=== PATIENT | male | born 1960 | race Hispanic/Latino ===

== ENCOUNTER 2018-08-02 11:25 | Observation (INO) | payer MEDICARE ==
[2018-08-02] MEDS ORDERED: Acetaminophen 500 MG TAB PO PRN (12:36)
[2018-08-02] MEDS ORDERED: Ondansetron HCl/PF 4 MG/2 ML Vial IVP PRN (12:36)
[2018-08-02 13:21] LABS: #Basophils 0.1 thou/uL (0.0-0.2); #Eosinphils 0.2 thou/uL (0.0-0.7); #Lymphocytes 3.4 thou/uL (1.20-3.40); #Monocytes 0.7 thou/uL (0.11-0.59); #Neutrophils 7.6 thou/uL (1.40-6.50); %Basophils 0.6 % (0.0-1.0); %Eosinophils 1.9 % (0.0-10.0); %Lymphocytes 28.5 % (21.0-51.0); %Monocytes 6.2 % (0.0-10.0); %Neutrophils 62.9 % (42.0-75.0); Hemoglobin 15.3 g/dL (14.0-18.0); Mean Corpuscular HGB CONC 33.6 g/dL (32.0-36.0); Mean Corpuscular Hemoglobin 30.6 pg (27.0-31.0); Mean Corpuscular Volume 90.9 fL (78.0-98.0); Mean Platelet Volume 7.2 fL (7.4-10.4); Platelet Count 294 thou/uL (130-400); RBC Distribution Width 11.5 % (11.5-14.5)
[2018-08-02] MEDS ORDERED: Iopamidol 370 76% 100 ML VIAL ONE (13:21)
[2018-08-02 13:25] VITALS: BMI 37.8
[2018-08-02 13:42] LABS: ALT (SGPT) 99 U/L (8-55); AST (SGOT) 67 U/L (5-34); Albumin 4.1 g/dL (3.5-5.0); Alkaline Phosphatase 71 U/L (40-150); Anion Gap 15 mmol/L (10-20); BUN (Urea Nitrogen) 16 mg/dL (8.4-25.7); Bilirubin, Total 0.6 mg/dL (0.2-1.2); Calc. Creatinine Clearance 182 mL/min (70-130); Calcium 9.6 mg/dL (7.8-10.44); Carbon Dioxide 26 mmol/L (22-29); Cardiac Risk 3.3 (Less than 4.5); Chloride 101 mmol/L (98-107); Cholesterol 129 mg/dl (< 200 Desired); Estimated GFR-MDRD Greater than 90; Glucose 134 mg/dL (70-105); HDL Cholesterol 39 mg/dL (>60 Neg Risk); LDL Cholesterol, Calculated 67 mg/dL; Potassium 3.9 mmol/L (3.5-5.1); Protein, Total 7.1 g/dL (6.0-8.3); Sodium 138 mmol/L (136-145); Triglycerides 117 mg/dL (Less than 150)
[2018-08-02] MEDS ORDERED: Cyclobenzaprine 10 MG TAB PO PRN (14:48)
--- NOTE | 2018-08-02 14:56 | PDOC.FPRHP ---
- History of Present Illness Chief Complaint: facial weakness History of Present Illness: Mr Bingham is a 57 y/o M with DM, HTN, and HLD presenting as a direct admission from clinic after he was found to have a 1 week history of facial weakness. His left side reportedly became numb and weak 1 week ago with and unclear duration of onset. He does not complain of weakness in his extremities, but his PCP reports L sided weakness upon exam. Associated altered sensation on L side of face but nowhere else. He has been ambulating well, but experiencing difficulty chewing, with normal swallowing. Also denies vision changes, ANDREWS, SOB, Chest pain. He does state he was having L arm/shoulder pain last week and was Rx Flexeril in clinic for a muscle spasm with resolution of symptoms. He currently denies any complaints lying in bed. - Allergies/Adverse Reactions Allergies Allergy/AdvReac Type Severity Reaction Status Date / Time No Known Allergies Allergy Verified 05/22/13 10:50 - Home Medications Medication Instructions Recorded Confirmed Type metFORMIN HCl 1,000 mg PO BID 05/22/13 08/02/18 History Aspirin [Aspirin EC] 1 tab PO DAILY 08/02/18 08/02/18 History Cyclobenzaprine [Flexeril] 5 mg PO TID PRN 08/02/18 08/02/18 History Insulin Glargine [Lantus Vial] 40 units SC BID 08/02/18 08/02/18 History Lisinopril/Hydrochlorothiazide 1 tab PO DAILY 08/02/18 08/02/18 History [Prinizide 20-12.5] - History PMHx: PSHx: FHx: Social: - Review of Systems General: denies: fever/chills, weight/appetite/sleep changes Eyes: denies: eye pain, vision changes ENT: denies: nasal congestion, rhinorrhea Respiratory: denies: cough, congestion, shortness of breath Cardiovascular: denies: chest pain, palpitation, edema Gastrointestinal: denies: nausea, vomiting, constipation Genitourinary: denies: incontinence, dysuria Skin: denies: rashes, lesions Musculoskeletal: denies: pain, tenderness, stiffness Neurological: reports: numbness, weakness. denies: syncope, seizure Psychological: denies: anxiety, depression - Vital signs BP: [] HR: [] RR: [] Tmax: [] Pox: []% on [] Wt: [] - Physical Exam Constitutional: NAD, awake, alert and oriented HEENT: normocephalic and atraumatic, PERRLA, EOMI, conjunctiva clear, no scleral icterus, grossly normal hearing, MMM, oropharynx clear Neck: supple, no bruits Chest: no-tender to palpation Heart: RRR, normal S1/S2, no murmurs/rubs/gallops Lungs: CTAB, no respiratory distress, good air movement, no rales/rhonchi Abdomen: soft, non-tender, bowel sounds present Musculoskeletal: normal structure, normal tone, ROM grossly normal -Neurological: Eyes: No nystagmus, PERRL, EOMI Strength: 4/5 in upper and lower extremities. CN II: Visual argueta are full. Pupils are 6 mm and reactive to light. CN III, IV, : no eye deviation. Ptosis of the L eye present. CN V: Facial sensation is decreased in 3 areas tested on L. Corneal responses are intact. CN VII: Eye with decrease squint on L and smile not intact on L side. Unable to inflate cheeks. CN VII: Hearing is normal to rubbing fingers CN XI: Head turning and shoulder shrug are intact, but L side is diminished. CN XII: Tongue deviation to R. Reflexes: 2/4 through upper and LE Skin: no rash/lesions, good turgor, capillary refill <2 seconds Heme/Lymphatic: no unusual bruising or bleeding, no purpura Psychiatric: normal mood and affect, good judgment and insight FMR H&P: Results - Labs Result Diagrams: 08/02/18 13:03 08/02/18 13:03 Lab results: WBC 12.0 thou/uL (4.8-10.8) H 08/02/18 13:03 Hgb 15.3 g/dL (14.0-18.0) 08/02/18 13:03 Hct 45.4 % (42.0-52.0) 08/02/18 13:03 MCV 90.9 fL (78.0-98.0) 08/02/18 13:03 Plt Count 294 thou/uL (130-400) 08/02/18 13:03 Neutrophils % 62.9 % (42.0-75.0) 08/02/18 13:03 Sodium 138 mmol/L (136-145) 08/02/18 13:03 Potassium 3.9 mmol/L (3.5-5.1) 08/02/18 13:03 Chloride 101 mmol/L (98-107) 08/02/18 13:03 Carbon Dioxide 26 mmol/L (22-29) 08/02/18 13:03 BUN 16 mg/dL (8.4-25.7) 08/02/18 13:03 Creatinine 0.80 mg/dL (0.6-1.3) 08/02/18 13:03 Glucose 134 mg/dL (70-105) H 08/02/18 13:03 Calcium 9.6 mg/dL (7.8-10.44) 08/02/18 13:03 Total Bilirubin 0.6 mg/dL (0.2-1.2) 08/02/18 13:03 AST 67 U/L (5-34) H 08/02/18 13:03 ALT 99 U/L (8-55) H 08/02/18 13:03 Alkaline Phosphatase 71 U/L (40-150) 08/02/18 13:03 Serum Total Protein 7.1 g/dL (6.0-8.3) 08/02/18 13:03 Albumin 4.1 g/dL (3.5-5.0) 08/02/18 13:03 FMR H&P: A/P - Problem List (1) Progressive focal motor weakness Current Visit: Yes Status: Acute Code(s): R53.1 - WEAKNESS (2) Neurologic abnormality Current Visit: Yes Status: Acute Code(s): R29.818 - OTHER SYMPTOMS AND SIGNS INVOLVING THE NERVOUS SYSTEM (3) Diabetes mellitus type 2 in obese Current Visit: Yes Status: Acute Code(s): E11.69 - TYPE 2 DIABETES MELLITUS WITH OTHER SPECIFIED COMPLICATION; E66.9 - OBESITY, UNSPECIFIED (4) Hypertension Current Visit: Yes Status: Acute Code(s): I10 - ESSENTIAL (PRIMARY) HYPERTENSION (5) Hyperlipemia Current Visit: Yes Status: Acute Code(s): E78.5 - HYPERLIPIDEMIA, UNSPECIFIED - Plan 1: Suspected CVA: PE and history consistent with a stroke occurring 1 week ago. Will order MRI, ECHO, and CTA head/neck. - ST has evaluated and given recs. On ASA/Statin. - Will consult neurology as well. PT/OT. 2: T2DM: Will resume home Lantus 3: HTN: Restart HTN medication tomorrow morning after MRI 4: HLD: Continue statin DISPO: anticipate discharge in 1-2 days DVTPPX: lovenox Attending Addendum - Attending Addendum Date/Time: 08/02/181821 I personally evaluated the patient and discussed the management with Dr. Burciaga. I agree with and repeated the History, Examination, Assessment and Plan documented above with any addition or exceptions noted below. Pt with symptoms as above. 1 week history. Will order imaging, consult neuro, risk stratify. He has left face hemiparesis above and below the brow. He also has some left sided weakness, and subjective weakness with chewing. DDx includes peck's palsy vs ischemic stroke.
[2018-08-02] MEDS ORDERED: Dextrose 50% Abboject 50 ML SYRINGE SLOW IVP PRN (15:29)
[2018-08-02] MEDS ORDERED: Dextrose 5% in Water 1,000 ML IV PRN (15:29)
[2018-08-02 16:10] VITALS: TEMP 97.6
--- NOTE | 2018-08-02 16:55 | MRI ---
MRI OF BRAIN WITHOUT CONTRAST: 08/02/18 HISTORY: CVA. Stroke. COMPARISON: None. TECHNIQUE: Brain MRI is performed without intravenous gadolinium administration. Multisequential, multiplanar im aging is performed. FINDINGS: The calvarium has a normal T1 marrow signal intensity. Midline brain parenchymal structures are unrem arkable. No parenchymal mass, mass effect or midline shift. Brain volume is age appropriate. Cortical crowe-white matter differentiation is preserved. Ventricles and sulci are patent and symmetric. Central arterial flow voids are maintained. Absent res tricted diffusion. No hemorrhage on the axial gradient echo sequence. Partial opacification of bilateral mastoid air cells, right greater than left. Minimal mucosal thicke davidson of the ethmoid air cells. IMPRESSION: Absent restricted diffusion. No acute infarct. POS: [facility]
[2018-08-02] MEDS ORDERED: metFORMIN 500 MG TAB PO SCH (17:00)
--- NOTE | 2018-08-02 17:29 | CT ---
CT ANGIOGRAM OF HEAD CT ANGIOGRAM OF NECK: Date: 08/02/18 HISTORY: Evaluate for stroke. Facial droop. COMPARISON: None. TECHNIQUE: Noncontrast head CT is performed in the axial plane. CT angiogram of the head and neck are performed in the axial plane. Three-dimensional reformatted images are submitted for interpretation. FINDINGS: NONCONTRAST HEAD CT: No parenchymal hemorrhage. No extra-axial hematoma. No midline shift. Basilar cisterns are patent. Br ain volume, age-appropriate. Cortical crowe-white matter differentiation is preserved. Ventricles and sulci are patent and symmetric. POSTCONTRAST HEAD CT: No pathologic enhancement of the brain parenchyma. Visualized orbits are unremarkable. Adequate aeration of the sinuses and mastoid air cells. Aerodigestive tract is patent. No mucosal abnormality. Epiglottis is normal caliber. Preepiglottic fa t is preserved. No masses in the oral cavity. Evaluation is limited by dental amalgam artifact. Midli ne fatty [place] of the tongue is preserved. Symmetric attenuation of the sternocleidomastoid muscles, submandibular glands, and parotid glands. Unremarkable thyroid gland. No evidence of lymphadenopathy by size criteria. Varying degrees of central canal stenosis and foraminal narrowing on the basis of degenerative change . Upper mediastinum and lung apices do not have any acute abnormality. CT ANGIOGRAM: There is appropriate enhancement and luminal diameter of the aortic arch. Right Carotid: The origin of the right carotid artery, carotid bifurcation, and internal carotid art carlos have appropriate enhancement and luminal diameter. Left Carotid: The origin of the left carotid artery, carotid bifurcation, and internal carotid arter y have appropriate enhancement and luminal diameter. Bilateral subclavian arteries are symmetric and patent. The left vertebral artery is dominant through out its course in the neck. The right vertebral artery may have a short segment of moderate stenosis at approximately the C4-C5 level. CT ANGIOGRAM OF HEAD: There is atherosclerosis involving both cavernous and paraclinoid segments. There is no evidence of s ignificant stenosis. Anterior Circulation: The diminutive right A1 segment is presumed to be a congenital variant. Left A 1 segment and proximal A2 segments are unremarkable. Proximal M1 segments are symmetric. Proximal MCA branches are unremarkable. Posterior Circulation: Right vertebral artery has a PICA termination. The left vertebral artery supp lies a normal appearing basilar artery. Appropriate enhancement and luminal diameter. The left and ri ght P1 segments have appropriate enhancement and luminal diameter. IMPRESSION: 1. Unremarkable CT angiogram of the [place]. 2. No evidence of significant stenosis in either cervical carotid artery based upon NASCET criteria. There may be short segment stenosis involving the right vertebral artery at approximately the C4-C5 level. Note, the right vertebral artery has a PICA termination. Left vertebral artery is a dominant v ertebral artery. POS: [facility]
[2018-08-02 18:06] VITALS: BP 116/71
[2018-08-02] MEDS ORDERED: Atorvastatin Calcium 40 MG TAB PO SCH (21:00)
[2018-08-02] MEDS ORDERED: Enoxaparin Sodium 40 MG/0.4 ML SYRINGE SC SCH (21:00)
[2018-08-02] MEDS ORDERED: Insulin Glargine 40 UNITS in Pre-Filled Syringe 1 EACH SC SCH (21:00)
--- NOTE | 2018-08-02 22:41 | CON ---
DATE OF CONSULTATION: 08/02/2018 NEUROLOGY CONSULTATION CONSULTING PHYSICIAN: [facility]. IMPRESSION: 1. Arrieta's palsy. 2. Diabetes. 3. Hypertension. 4. Obesity. 5. Hyperlipidemia. PLAN: Discussed eye protection measures with the patient to avoid corneal damage. Mr. Bingham is a 57-year-old man who was admitted to the [facility] after being seen for f acial weakness. He reports that on Monday, he started noticing some symptoms. There was no associat ed pain. The patient was subsequently seen in the clinic today and admitted. He had an MRI of the b rain which was normal. CTA was also done, but the results are pending. He denies any other ongoing recent illness. PAST MEDICAL HISTORY: As noted above. ALLERGIES: None reported. SOCIAL HISTORY: No illicit drug use. FAMILY HISTORY: Noncontributory. REVIEW OF SYSTEMS: Otherwise, negative. PHYSICAL EXAMINATION: GENERAL: He is an obese, middle-aged man sitting at the bedside eating hamburger. HEENT: Pupils are equal. Conjunctivae clear. Oropharynx clear. NECK: Supple. EXTREMITIES: No cyanosis. NEUROLOGIC: He was alert and cooperative. His speech is fluent and clear. Cranial nerve exam was n otable for a moderate degree of weakness involving the entire left side of the face including the fro ntalis and eye closure strength. Sensation was intact to light touch. There was no hyperacusis elic ited. He reports that his taste is not altered. His strength is otherwise intact. Sensation intact . There are no balance difficulties. IMAGING DATA: MRI images were reviewed. 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 Given his diabetes, I would not jolanta at him with steroids. I have discussed eye ointment and eye drops and potentially taping the eyelid closed at night. I will be happy to follow up with him in the office.
[2018-08-03] MEDS ORDERED: Aspirin 81 mg Enteric Coated Tablet PO SCH (09:00)
[2018-08-03] MEDS ORDERED: Lisinopril/Hydrochlorothiazide 20 mg/12.5 mg Tablet PO SCH (09:00)
--- NOTE | 2018-08-03 13:10 | DIS-2 ---
DATE OF ADMISSION: 08/02/2018 DATE OF DISCHARGE: 08/02/2018 RESIDENT: Braeden Burciaga M.D. ADMITTING ATTENDING: Dr. Nestor Marquis. DISCHARGE ATTENDING: Dr. Nestor Marquis. CONSULTATIONS: Neurology, Dr. Blackwell. PROCEDURE: NA. PRIMARY DIAGNOSIS: Arrieta's palsy. SECONDARY DIAGNOSES: Diabetes mellitus type 2, hypertension, hyperlipidemia. DISCHARGE MEDICATIONS: Metformin 500 mg b.i.d., cyclobenzaprine 5 mg p.o. t.i.d. p.r.n., lisinopril/ HCTZ 1 tab p.o. daily, aspirin 81 mg 1 tab p.o. daily, insulin Glargine (Lantus 40 units subcutaneous ly b.i.d. DISCONTINUED MEDICATIONS: None. HISTORY OF PRESENT ILLNESS AND HOSPITAL COURSE: This is a 57-year-old gentleman presented from [facility] with complaints of left-sided weakness and left-sided facial droop. He underwent an MRI a nd CTA of head and neck which were both negative. Neurology did evaluate this patient and determined his diagnosis was likely to Arrieta's palsy and also gave his blessing for discharge and followup. The re were no complications during this short hospital stay. DISCHARGE INSTRUCTIONS: 1. Location. Home. 2. Diet: Heart healthy. 3. Activity: ad laura. 4. Followup with Dr. Adriel Monterroso in 1-2 weeks.
--- NOTE | 2018-08-04 08:35 | EKG ---
Test Reason : Blood Pressure : / mmHG Vent. Rate : 093 BPM Atrial Rate : 093 BPM P-R Int : 178 ms QRS Dur : 144 ms QT Int : 388 ms P-R-T Axes : 007 -07 000 degrees QTc Int : 482 ms Normal sinus rhythm Right bundle branch block Abnormal ECG No previous ECGs available Confirmed by JONAH OLIVO ([id number]) on 08/04/2018 8:34:48 AM Referred By: MILAGRO Confirmed By:JONAH OLIVO
== END 2018-08-02 19:08 | disposition home or self-care (01) ==
LOC: 2SE 12:00
PROVIDERS: ADMIT Family Medicine; ATTEND Family Medicine
DX: G51.0 Bell's palsy (principal); R29.91 Unspecified symptoms and signs involving the musculoskeletal system; E11.9 Type 2 diabetes mellitus without complications; I10 Essential (primary) hypertension; E78.5 Hyperlipidemia, unspecified; E66.9 Obesity, unspecified; Z68.37 Body mass index [BMI] 37.0-37.9, adult; Z79.4 Long term (current) use of insulin; Z79.82 Long term (current) use of aspirin; Z79.899 Other long term (current) drug therapy
CPT/HCPCS: 70496; 70498; 70551; 80061; 82962; 93005; 97139; G0379; G8978; G8979; G8980; 36415; 36416; 80053; 84443; 85025; 93010; G8996-GN-CI; G8997-GN-CH

== ENCOUNTER 2021-05-05 15:13 | Inpatient (IN) | payer MEDICARE ==
[~2021-05-05 15:13] MED LIST: Iopamidol-370 76% 500 ML 1 ML ONE
[2021-05-05] MEDS ORDERED: Piperacillin/Tazobactam 4.5 GM VIAL ONE (16:11)
[2021-05-05 16:15] LABS: Mean Corpuscular HGB CONC 33.8 g/dL (32.0-36.0); Mean Corpuscular Hemoglobin 31.5 pg (27.0-31.0); Mean Corpuscular Volume 93.2 fL (78.0-98.0); Mean Platelet Volume 8.1 fL (7.4-10.4); Platelet Count 267 thou/uL (130-400); RBC Distribution Width 12.2 % (11.5-14.5); Red Blood Cell (RBC) Count 5.09 mill/uL (4.70-6.10); White Blood Cell (WBC) Count 19.9 thou/uL (4.8-10.8)
[2021-05-05] MEDS ORDERED: Vancomycin 1 GM/200 ML BAG ONE (16:18)
[2021-05-05 16:26] LABS: Bacteria/HPF None Seen HPF (None Seen); Bilirubin 1+ (Negative); Blood, Urine Trace (Negative); Clarity Extra Turbid (Clear); Glucose, Urine (Dipstick) 30 mg/dL (Negative); Ketone, Urine Negative (Negative); Leukocyte Negative Leu/uL (Negative); Nitrite Negative (Negative); Protein, Urine (Dipstick) 600 mg/dL (Neg-Trace); pH, Urine 5.5 (5.0-9.0)
[2021-05-05] MEDS ORDERED: Norepinephrine 8 MG/0.9% NS 250 ML ONE (16:26)
[2021-05-05 16:39] LABS: Actual Bicarbonate (HCO3v) 21 mEq/L (22-28); Analyzer IN Cardio ER; Base Excess -5.9 mEq/L (-2.0 to +3.0); Calcium, Ionized (venous) 0.94 mmol/L (1.16-1.32); Chloride (VBG) 108 mmol/L (98-106); Hemoglobin (Hb) 13.3 g/dL (13.1-17.2); Potassium (VBG) 3.28 mmol/L (3.70-5.30); Sodium 138.7 mmol/L (133-146); pH (venous) 7.26 (7.32-7.43)
[2021-05-05 16:39] LABS: Band 6 % (5-11); Lymphocytes 21 % (21-51); MDiff Complete? YES; Monocytes 5 % (0-10); Neutrophil 56 % (42-75); Platelet Morphology Comment Appears Adequate; RBC Morphology Normal; Reactive Lymphocytes 12 % (0-10)
[2021-05-05 16:47] LABS: ALT (SGPT) 111 U/L (8-55); AST (SGOT) 79 U/L (5-34); Albumin 3.7 g/dL (3.5-5.0); Alkaline Phosphatase 87 U/L (40-110); Anion Gap 18 mmol/L (10-20); BUN (Urea Nitrogen) 19 mg/dL (8.4-25.7); Bilirubin, Total 0.6 mg/dL (0.2-1.2); Calc. Creatinine Clearance 0 mL/min (70-130); Calcium 9.2 mg/dL (7.8-10.44); Carbon Dioxide 24 mmol/L (22-29); Chloride 101 mmol/L (98-107); Globulin 3.1 g/dL (2.4-3.5); Glucose 148 mg/dL (70-105); Potassium 3.2 mmol/L (3.5-5.1); Protein, Total 6.8 g/dL (6.0-8.3); Sodium 140 mmol/L (136-145)
[2021-05-05 18:16] LABS: SARS-CoV-2 NAA Rapid Test Not Detected (NotDetected)
[2021-05-05] MEDS ORDERED: Ondansetron ODT 4 MG TAB PO PRN (19:50)
[2021-05-05] MEDS ORDERED: Dextrose 5% in Water 1,000 ML IV PRN (19:50)
[2021-05-05] MEDS ORDERED: Acetaminophen 325 MG TAB PO PRN (19:50)
[2021-05-05] MEDS ORDERED: Dextrose 50% Abboject 50 ML SYRINGE SLOW IVP PRN (19:50)
[2021-05-05] MEDS ORDERED: hydrALAZINE 20 MG/ML VIAL SLOW IVP PRN (19:50)
[2021-05-05] MEDS ORDERED: HumaLOG 300 UNITS/3 ML VIAL SC PRN (19:50)
[2021-05-05 20:21] LABS: Lactic Acid 4.2 mmol/L (0.5-2.2)
[2021-05-05 21:03] LABS: Troponin I 0.064 ng/mL (< 0.028)
[2021-05-05] MEDS ORDERED: Electrolyte Replacement Protocol 1 EACH FS SCH (21:30)
[2021-05-05] MEDS ORDERED: Enoxaparin Sodium 30 MG/0.3 ML SYRINGE SC SCH (21:45)
[2021-05-05] MEDS ORDERED: Enoxaparin Sodium 100 MG/ML SYRINGE SC SCH (21:45)
[2021-05-05] MEDS: Lactated Ringer's 1,000 ML IV SCH (21:50)
[2021-05-05] MEDS: cefTRIAXone\\ROCEPHIN 1 GM in Sodium Chloride 0.9% 100 ML IVPB SCH (21:50)
[2021-05-05] MEDS: Azithromycin 500 MG in Sodium Chloride 0.9% 250 ML 250 ML IVPB SCH (21:59)
[2021-05-05] MEDS ORDERED: Potassium Chloride 40 MEQ in Sodium Chloride 0.9% 250 ML 250 ML IVPB SCH (22:00)
[2021-05-05] MEDS ORDERED: Magnesium 2 GM/50 ML 2 GM in Premix Bag 1 BAG IVPB SCH (22:45)
[2021-05-06 00:41] LABS: Troponin I 0.267 ng/mL (< 0.028)
[2021-05-06 04:39] LABS: #Basophils 0.1 thou/uL (0.0-0.2); #Eosinphils 0.1 thou/uL (0.0-0.7); #Lymphocytes 3.7 thou/uL (1.20-3.40); #Monocytes 0.8 thou/uL (0.11-0.59); #Neutrophils 8.8 thou/uL (1.40-6.50); %Basophils 0.7 % (0.0-1.0); %Eosinophils 0.9 % (0.0-10.0); %Lymphocytes 27.4 % (21.0-51.0); %Monocytes 5.6 % (0.0-10.0); %Neutrophils 65.5 % (42.0-75.0); Mean Corpuscular Hemoglobin 32.1 pg (27.0-31.0); Mean Corpuscular Volume 94.3 fL (78.0-98.0); Mean Platelet Volume 8.1 fL (7.4-10.4); Platelet Count 204 thou/uL (130-400); RBC Distribution Width 12.3 % (11.5-14.5); Red Blood Cell (RBC) Count 4.38 mill/uL (4.70-6.10); White Blood Cell (WBC) Count 13.4 thou/uL (4.8-10.8)
[2021-05-06 05:19] LABS: Anion Gap 12 mmol/L (10-20); BUN (Urea Nitrogen) 15 mg/dL (8.4-25.7); Calc. Creatinine Clearance 156 mL/min (70-130); Calcium 7.8 mg/dL (7.8-10.44); Carbon Dioxide 25 mmol/L (22-29); Chloride 107 mmol/L (98-107); Glucose 115 mg/dL (70-105); Potassium 4.6 mmol/L (3.5-5.1); Sodium 139 mmol/L (136-145)
[2021-05-06 05:21] LABS: Troponin I 0.496 ng/mL (< 0.028)
[2021-05-06] MEDS: Lactated Ringer's 1,000 ML IV SCH ×2 (05:31→16:03)
[2021-05-06] MEDS ORDERED: Electrolyte Replacement Protocol FS PRN (06:45)
[2021-05-06] MEDS: Potassium Chloride 40 MEQ, Magnesium Sulfate 2 GM in Sodium Chloride 0.9% 250 ML 250 ML IVPB SCH ×2 (07:34→11:33)
[2021-05-06] MEDS ORDERED: Potassium Chloride 40 MEQ in Sodium Chloride 0.9% 250 ML 250 ML IVPB SCH (08:00)
[2021-05-06] MEDS: Enoxaparin Sodium 100 MG/ML SYRINGE SC SCH ×2 (08:39→20:28)
[2021-05-06] MEDS: Enoxaparin Sodium 30 MG/0.3 ML SYRINGE SC SCH ×2 (08:39→20:28)
[2021-05-06] MEDS: Lantus 1000 UNITS/10 ML VIAL SC SCH (08:40)
[2021-05-06] MEDS ORDERED: Enoxaparin Sodium 40 MG/0.4 ML SYRINGE SC SCH (09:00)
[2021-05-06 09:33] LABS: Critical Call Chem Troponin I RESULT DECREASING; Troponin I 0.485 ng/mL (< 0.028)
[2021-05-06] MEDS: HumaLOG 300 UNITS/3 ML VIAL SC PRN (16:15)
[2021-05-06] MEDS ORDERED: Aspirin 81 mg Enteric Coated Tablet PO SCH (17:15)
[2021-05-06] MEDS: cefTRIAXone\\ROCEPHIN 1 GM in Sodium Chloride 0.9% 100 ML IVPB SCH (20:27)
[2021-05-06] MEDS: Azithromycin 500 MG in Sodium Chloride 0.9% 250 ML 250 ML IVPB SCH (21:38)
[2021-05-07] MEDS: Lactated Ringer's 1,000 ML IV SCH ×3 (03:02→22:59)
[2021-05-07 05:28] LABS: Cardiac Risk 2.4 (Less than 4.5); Magnesium 1.6 mg/dL (1.6-2.6)
[2021-05-07] MEDS ORDERED: Magnesium 2 GM/50 ML 2 GM in Premix Bag 1 BAG IVPB SCH (06:30)
[2021-05-07] MEDS ORDERED: Apixaban 5 MG TAB PO SCH (09:00)
[2021-05-07 09:28] LABS: #Basophils 0.1 thou/uL (0.0-0.2); #Eosinphils 0.3 thou/uL (0.0-0.7); #Lymphocytes 3.3 thou/uL (1.20-3.40); #Monocytes 0.7 thou/uL (0.11-0.59); #Neutrophils 6.7 thou/uL (1.40-6.50); %Basophils 0.7 % (0.0-1.0); %Eosinophils 2.5 % (0.0-10.0); %Lymphocytes 29.9 % (21.0-51.0); %Monocytes 6.1 % (0.0-10.0); %Neutrophils 60.9 % (42.0-75.0); Hemoglobin 14.9 g/dL (14.0-18.0); Mean Corpuscular HGB CONC 33.2 g/dL (32.0-36.0); Mean Corpuscular Hemoglobin 31.4 pg (27.0-31.0); Mean Corpuscular Volume 94.6 fL (78.0-98.0); Mean Platelet Volume 7.8 fL (7.4-10.4); Platelet Count 205 thou/uL (130-400); RBC Distribution Width 12.6 % (11.5-14.5); Red Blood Cell (RBC) Count 4.75 mill/uL (4.70-6.10); White Blood Cell (WBC) Count 11.1 thou/uL (4.8-10.8)
[2021-05-07] MEDS: Enoxaparin Sodium 100 MG/ML SYRINGE SC SCH ×2 (10:43→21:06)
[2021-05-07] MEDS: HumaLOG 300 UNITS/3 ML VIAL SC PRN ×2 (10:50→17:06)
[2021-05-07] MEDS: Lantus 1000 UNITS/10 ML VIAL SC SCH (10:50)
[2021-05-07] MEDS: cefTRIAXone\\ROCEPHIN 1 GM in Sodium Chloride 0.9% 100 ML IVPB SCH (21:04)
[2021-05-07] MEDS: Azithromycin 500 MG in Sodium Chloride 0.9% 250 ML 250 ML IVPB SCH (22:25)
[2021-05-08] MEDS: Lantus 1000 UNITS/10 ML VIAL SC SCH (09:36)
[2021-05-08] MEDS: Apixaban 5 MG TAB PO SCH ×2 (09:36→20:38)
[2021-05-08] MEDS: Lactated Ringer's 1,000 ML IV SCH ×2 (09:36→17:37)
[2021-05-08 15:20] LABS: #Eosinphils 0.3 thou/uL (0.0-0.7); #Lymphocytes 2.9 thou/uL (1.20-3.40); #Monocytes 0.6 thou/uL (0.11-0.59); #Neutrophils 7.1 thou/uL (1.40-6.50); %Basophils 0.1 % (0.0-1.0); %Eosinophils 2.4 % (0.0-10.0); %Lymphocytes 26.8 % (21.0-51.0); %Monocytes 5.6 % (0.0-10.0); %Neutrophils 65.1 % (42.0-75.0); Hemoglobin 14.4 g/dL (14.0-18.0); Mean Corpuscular HGB CONC 34.1 g/dL (32.0-36.0); Mean Corpuscular Hemoglobin 31.8 pg (27.0-31.0); Mean Corpuscular Volume 93.2 fL (78.0-98.0); Mean Platelet Volume 7.6 fL (7.4-10.4); Platelet Count 200 thou/uL (130-400); RBC Distribution Width 12.2 % (11.5-14.5); Red Blood Cell (RBC) Count 4.53 mill/uL (4.70-6.10); White Blood Cell (WBC) Count 10.9 thou/uL (4.8-10.8)
[2021-05-08 15:41] LABS: Anion Gap 11 mmol/L (10-20); BUN (Urea Nitrogen) 9 mg/dL (8.4-25.7); Calc. Creatinine Clearance 202 mL/min (70-130); Calcium 8.8 mg/dL (7.8-10.44); Carbon Dioxide 26 mmol/L (22-29); Chloride 105 mmol/L (98-107); Glucose 156 mg/dL (70-105); Sodium 138 mmol/L (136-145)
[2021-05-08] MEDS: Carvedilol 3.125 MG TAB PO SCH (16:10)
[2021-05-08] MEDS: cefTRIAXone\\ROCEPHIN 1 GM in Sodium Chloride 0.9% 100 ML IVPB SCH (20:40)
[2021-05-08] MEDS: Azithromycin 500 MG in Sodium Chloride 0.9% 250 ML 250 ML IVPB SCH (21:21)
[2021-05-09] MEDS: Lactated Ringer's 1,000 ML IV SCH ×3 (00:38→18:28)
[2021-05-09] MEDS: Apixaban 5 MG TAB PO SCH ×2 (09:30→21:07)
[2021-05-09] MEDS: Carvedilol 3.125 MG TAB PO SCH ×2 (09:30→17:01)
[2021-05-09] MEDS: Lantus 1000 UNITS/10 ML VIAL SC SCH (09:30)
[2021-05-09 10:07] LABS: #Eosinphils 0.3 thou/uL (0.0-0.7); #Lymphocytes 2.2 thou/uL (1.20-3.40); #Monocytes 0.5 thou/uL (0.11-0.59); #Neutrophils 6.6 thou/uL (1.40-6.50); %Basophils 0.2 % (0.0-1.0); %Eosinophils 3.5 % (0.0-10.0); %Lymphocytes 22.9 % (21.0-51.0); %Monocytes 5.5 % (0.0-10.0); Hemoglobin 14.3 g/dL (14.0-18.0); Mean Corpuscular HGB CONC 34.2 g/dL (32.0-36.0); Mean Corpuscular Hemoglobin 31.9 pg (27.0-31.0); Mean Corpuscular Volume 93.4 fL (78.0-98.0); Mean Platelet Volume 7.5 fL (7.4-10.4); Platelet Count 204 thou/uL (130-400); RBC Distribution Width 12.3 % (11.5-14.5); Red Blood Cell (RBC) Count 4.47 mill/uL (4.70-6.10); White Blood Cell (WBC) Count 9.7 thou/uL (4.8-10.8)
[2021-05-09] MEDS ORDERED: Lisinopril 10 MG TAB PO SCH (13:45)
[2021-05-09] MEDS: cefTRIAXone\\ROCEPHIN 1 GM in Sodium Chloride 0.9% 100 ML IVPB SCH (21:06)
[2021-05-09] MEDS: Azithromycin 250 MG TAB PO SCH (21:07)
[2021-05-10] MEDS: Lactated Ringer's 1,000 ML IV SCH ×2 (05:58→16:50)
[2021-05-10] MEDS: Apixaban 5 MG TAB PO SCH ×2 (08:30→20:52)
[2021-05-10] MEDS: Lisinopril 10 MG TAB PO SCH (08:30)
[2021-05-10] MEDS: Carvedilol 3.125 MG TAB PO SCH ×2 (08:31→17:36)
[2021-05-10] MEDS: Lantus 1000 UNITS/10 ML VIAL SC SCH (08:31)
[2021-05-10] MEDS: cefTRIAXone\\ROCEPHIN 1 GM in Sodium Chloride 0.9% 100 ML IVPB SCH (20:51)
[2021-05-10] MEDS: Azithromycin 250 MG TAB PO SCH (20:52)
[2021-05-11] MEDS: Lactated Ringer's 1,000 ML IV SCH ×3 (02:19→20:33)
[2021-05-11 04:25] LABS: #Basophils 0.1 thou/uL (0.0-0.2); #Eosinphils 0.4 thou/uL (0.0-0.7); #Lymphocytes 2.6 thou/uL (1.20-3.40); #Monocytes 0.7 thou/uL (0.11-0.59); %Basophils 0.5 % (0.0-1.0); %Eosinophils 4.6 % (0.0-10.0); %Lymphocytes 26.5 % (21.0-51.0); %Monocytes 6.7 % (0.0-10.0); %Neutrophils 61.7 % (42.0-75.0); Hemoglobin 13.5 g/dL (14.0-18.0); Mean Corpuscular HGB CONC 32.9 g/dL (32.0-36.0); Mean Corpuscular Hemoglobin 30.7 pg (27.0-31.0); Mean Corpuscular Volume 93.4 fL (78.0-98.0); Mean Platelet Volume 7.2 fL (7.4-10.4); Platelet Count 214 thou/uL (130-400); RBC Distribution Width 12.4 % (11.5-14.5); Red Blood Cell (RBC) Count 4.39 mill/uL (4.70-6.10); White Blood Cell (WBC) Count 9.7 thou/uL (4.8-10.8)
[2021-05-11 04:47] LABS: Anion Gap 11 mmol/L (10-20); BUN (Urea Nitrogen) 9 mg/dL (8.4-25.7); Calc. Creatinine Clearance 198 mL/min (70-130); Calcium 8.8 mg/dL (7.8-10.44); Carbon Dioxide 27 mmol/L (22-29); Chloride 103 mmol/L (98-107); Glucose 120 mg/dL (70-105); Magnesium 1.7 mg/dL (1.6-2.6); Sodium 137 mmol/L (136-145)
[2021-05-11] MEDS ORDERED: Magnesium 2 GM/50 ML 2 GM in Premix Bag 1 BAG IVPB SCH (08:15)
[2021-05-11] MEDS: Apixaban 5 MG TAB PO SCH ×2 (08:48→20:27)
[2021-05-11] MEDS: Carvedilol 3.125 MG TAB PO SCH ×2 (08:48→16:06)
[2021-05-11] MEDS: Lisinopril 10 MG TAB PO SCH (08:48)
[2021-05-11] MEDS: Lantus 1000 UNITS/10 ML VIAL SC SCH (08:49)
[2021-05-11] MEDS ORDERED: Magnesium Sulfate 2 GM in Sodium Chloride 0.9% 100 ML IVPB SCH (10:15)
[2021-05-11] MEDS: cefTRIAXone\\ROCEPHIN 1 GM in Sodium Chloride 0.9% 100 ML IVPB SCH (20:27)
[2021-05-11] MEDS: Azithromycin 250 MG TAB PO SCH (20:29)
[2021-05-12 05:02] LABS: ALT (SGPT) 43 U/L (8-55); AST (SGOT) 31 U/L (5-34); Albumin 3.2 g/dL (3.5-5.0); Alkaline Phosphatase 69 U/L (40-110); Anion Gap 11 mmol/L (10-20); BUN (Urea Nitrogen) 11 mg/dL (8.4-25.7); Bilirubin, Total 0.6 mg/dL (0.2-1.2); Calc. Creatinine Clearance 203 mL/min (70-130); Calcium 8.8 mg/dL (7.8-10.44); Carbon Dioxide 28 mmol/L (22-29); Chloride 103 mmol/L (98-107); Glucose 149 mg/dL (70-105); Potassium 3.9 mmol/L (3.5-5.1); Protein, Total 6.2 g/dL (6.0-8.3); Sodium 138 mmol/L (136-145)
[2021-05-12] MEDS: Carvedilol 3.125 MG TAB PO SCH ×2 (09:01→16:28)
[2021-05-12] MEDS: Lantus 1000 UNITS/10 ML VIAL SC SCH (09:01)
[2021-05-12] MEDS: Lisinopril 10 MG TAB PO SCH (09:01)
[2021-05-12] MEDS: Apixaban 5 MG TAB PO SCH ×2 (09:01→21:30)
[2021-05-12] MEDS: HumaLOG 300 UNITS/3 ML VIAL SC PRN (11:41)
[2021-05-12] MEDS: Lactated Ringer's 1,000 ML IV SCH ×2 (12:57→21:32)
[2021-05-13 05:01] LABS: #Eosinphils 0.5 thou/uL (0.0-0.7); #Lymphocytes 2.6 thou/uL (1.20-3.40); #Monocytes 0.5 thou/uL (0.11-0.59); #Neutrophils 5.6 thou/uL (1.40-6.50); %Basophils 0.4 % (0.0-1.0); %Lymphocytes 28.6 % (21.0-51.0); %Monocytes 5.8 % (0.0-10.0); %Neutrophils 60.2 % (42.0-75.0); Hemoglobin 13.9 g/dL (14.0-18.0); Mean Corpuscular Volume 93.9 fL (78.0-98.0); Mean Platelet Volume 7.3 fL (7.4-10.4); Platelet Count 237 thou/uL (130-400); RBC Distribution Width 12.4 % (11.5-14.5); White Blood Cell (WBC) Count 9.2 thou/uL (4.8-10.8)
[2021-05-13 05:27] LABS: Anion Gap 8 mmol/L (10-20); BUN (Urea Nitrogen) 10 mg/dL (8.4-25.7); Calc. Creatinine Clearance 191 mL/min (70-130); Calcium 8.9 mg/dL (7.8-10.44); Carbon Dioxide 29 mmol/L (22-29); Chloride 103 mmol/L (98-107); Glucose 177 mg/dL (70-105); Magnesium 1.8 mg/dL (1.6-2.6); Potassium 3.7 mmol/L (3.5-5.1); Sodium 136 mmol/L (136-145)
[2021-05-13] MEDS ORDERED: Magnesium 2 GM/50 ML 2 GM in Premix Bag 1 BAG IVPB SCH (06:30)
[2021-05-13] MEDS: Carvedilol 3.125 MG TAB PO SCH ×2 (08:27→16:21)
[2021-05-13] MEDS: Lisinopril 10 MG TAB PO SCH (08:27)
[2021-05-13] MEDS: Lactated Ringer's 1,000 ML IV SCH ×2 (08:27→18:21)
[2021-05-13] MEDS: Apixaban 5 MG TAB PO SCH ×2 (08:27→20:20)
[2021-05-13] MEDS: Lantus 1000 UNITS/10 ML VIAL SC SCH (08:29)
[2021-05-13 14:47] VITALS: BMI 39.2
[2021-05-14] MEDS: Lactated Ringer's 1,000 ML IV SCH ×2 (04:20→15:35)
[2021-05-14] MEDS: HumaLOG 300 UNITS/3 ML VIAL SC PRN ×2 (06:45→11:13)
[2021-05-14] MEDS: Carvedilol 3.125 MG TAB PO SCH ×2 (08:40→17:41)
[2021-05-14] MEDS: Lisinopril 10 MG TAB PO SCH (08:40)
[2021-05-14] MEDS: Apixaban 5 MG TAB PO SCH ×2 (08:40→20:09)
[2021-05-14] MEDS: Lantus 1000 UNITS/10 ML VIAL SC SCH (08:41)
[2021-05-15] MEDS: Lantus 1000 UNITS/10 ML VIAL SC SCH (08:57)
[2021-05-15] MEDS: Lisinopril 10 MG TAB PO SCH (08:57)
[2021-05-15] MEDS: Apixaban 5 MG TAB PO SCH (08:57)
[2021-05-15] MEDS: Carvedilol 3.125 MG TAB PO SCH (08:57)
[2021-05-15 11:54] VITALS: BP 137/71; TEMP 98.3
[2021-05-16] MEDS ORDERED: Apixaban 5 MG TAB PO SCH (09:00)
== END 2021-05-15 12:27 | disposition home or self-care (01) | DRG 871 ==
LOC: ERS 15:13 → CCU 17:08 → 2NO 05-07 20:14
PROVIDERS: ADMIT Internal Medicine; ATTEND Internal Medicine
PROC: 3E033XZ Introduction of Vasopressor into Peripheral Vein, Percutaneous Approach (ICD-10-PCS; principal; 2021-05-05)
PROC: 5A09557 Assistance with Respiratory Ventilation, Greater than 96 Consecutive Hours, Continuous Positive Airway Pressure (ICD-10-PCS; 2021-05-05)
DX: A41.9 Sepsis, unspecified organism (principal); I26.99 Other pulmonary embolism without acute cor pulmonale; Z20.822 Contact with and (suspected) exposure to COVID-19; J18.9 Pneumonia, unspecified organism; J96.01 Acute respiratory failure with hypoxia; R65.21 Severe sepsis with septic shock; I21.A1 Myocardial infarction type 2; I50.22 Chronic systolic (congestive) heart failure; E11.9 Type 2 diabetes mellitus without complications; I11.0 Hypertensive heart disease with heart failure; E78.5 Hyperlipidemia, unspecified; E78.00 Pure hypercholesterolemia, unspecified; E66.01 Morbid (severe) obesity due to excess calories; G47.33 Obstructive sleep apnea (adult) (pediatric); Z91.81 History of falling; Z87.891 Personal history of nicotine dependence; Z83.3 Family history of diabetes mellitus; Z79.4 Long term (current) use of insulin; Z79.899 Other long term (current) drug therapy; Z68.38 Body mass index [BMI] 38.0-38.9, adult
CPT/HCPCS: 0240U; 36415; 36416; 36556; 51702; 71045; 71275; 80048; 80053; 80061; 81003; 81015; 82805; 83605; 83735; 83880; 84484; 85025; 87040; 87086; 90471; 90732; 93005; 93306; 94660; 96365; 99292; G0009; J0456; J0696; J1650; J1815; J2543; J3370; J3475; J3480; J3490; J7050; Q9967

== ENCOUNTER 2021-06-09 10:29 | Outpatient (CLI) | payer MEDICARE | END 2021-06-09 10:30 | disposition home or self-care (01) | LOC: DTY/OP 10:29 | PROVIDERS: ATTEND Family Medicine | DX: E11.65 Type 2 diabetes mellitus with hyperglycemia (principal) | CPT/HCPCS: 97802 ==

== ENCOUNTER 2021-06-28 10:58 | Outpatient (CLI) | payer MEDICARE | END 2021-06-28 10:59 | disposition home or self-care (01) | LOC: BICRAD 10:58 | PROVIDERS: ATTEND Internal Medicine Critical Care Medicine | DX: R06.00 Dyspnea, unspecified (principal) | CPT/HCPCS: 71046 ==

== ENCOUNTER 2021-07-06 18:30 | Outpatient (CLI) | payer MEDICARE | END 2021-07-06 18:31 | disposition home or self-care (01) | LOC: SLEEPLAB 18:30 | PROVIDERS: ATTEND Internal Medicine Critical Care Medicine | DX: G47.33 Obstructive sleep apnea (adult) (pediatric) (principal); I10 Essential (primary) hypertension; E11.9 Type 2 diabetes mellitus without complications; G47.00 Insomnia, unspecified; G47.31 Primary central sleep apnea | CPT/HCPCS: 95806 ==

== ENCOUNTER 2021-08-10 19:00 | Outpatient (CLI) | payer MEDICARE | END 2021-08-10 19:01 | disposition home or self-care (01) | LOC: SLEEPLAB 19:00 | PROVIDERS: ATTEND Internal Medicine Critical Care Medicine | DX: G47.33 Obstructive sleep apnea (adult) (pediatric) (principal); E66.9 Obesity, unspecified; G47.10 Hypersomnia, unspecified; G47.31 Primary central sleep apnea; Z68.37 Body mass index [BMI] 37.0-37.9, adult | CPT/HCPCS: 95811 ==

== ENCOUNTER 2022-10-02 21:02 | Emergency (ER) | payer MEDICAID, MEDICARE ==
[2022-10-02] MEDS ORDERED: Ketorolac Tromethamine 30 MG/ML VIAL ONE (21:50)
[2022-10-02] MEDS ORDERED: HYDROcodone/Acetaminophen 5/325 mg Tablet ONE (21:50)
== END 2022-10-02 22:44 | disposition home or self-care (01) ==
LOC: ERS 21:02
DX: M54.40 Lumbago with sciatica, unspecified side (principal); E11.9 Type 2 diabetes mellitus without complications; Z79.84 Long term (current) use of oral hypoglycemic drugs
CPT/HCPCS: 36416; 96372; 99283; J1885

== ENCOUNTER 2023-01-31 15:25 | Outpatient (CLI) | payer OTHER, MEDICAID | END 2023-01-31 15:26 | disposition home or self-care (01) | LOC: ULT 15:25 | PROVIDERS: ATTEND Family Medicine | DX: I73.9 Peripheral vascular disease, unspecified (principal) | CPT/HCPCS: 93923 ==